=== PATIENT | female | born 1980 | race Caucasian/White ===

== ENCOUNTER 2023-10-04 11:45 | Inpatient (IN) | payer OTHER ==
[~2023-10-04] VITALS: Ht 167.6 cm; Wt 97.7 kg
[2023-10-04 12:39] LABS: HEMATOCRIT 46.2 % (36.0-47.0); HEMOGLOBIN 15.7 g/dl (12.0-15.5); MEAN CORPUSCULAR HEMOGLOBIN 30.5 pg (27.0-33.0); MEAN CORPUSCULAR VOLUME 89.7 fl (80.0-96.0); PLATELET COUNT, AUTOMATED 364 10^3/uL (150-450); RED BLOOD COUNT 5.15 10^6/uL (4.00-5.40); WHITE BLOOD COUNT 8.8 10^3/uL (4.0-10.0)
[2023-10-04] MEDS ORDERED: VITMTA PO (12:47)
[2023-10-04] MEDS ORDERED: BUPR300T92 PO (12:47)
[2023-10-04] MEDS ORDERED: SUMA50TA2 PO ×2 (12:47→17:24)
[2023-10-04] MEDS ORDERED: BUPR150T12 PO (12:47)
[2023-10-04] MEDS ORDERED: TOPI-21 PO ×2 (12:47→17:23)
[2023-10-04] MEDS ORDERED: B-12100020 PO (12:47)
[2023-10-04] MEDS ORDERED: OMEP10CASR PO (12:47)
[2023-10-04 13:04] LABS: ETHYL ALCOHOL (ETHANOL) 0.005 % (0.000-0.010)
[2023-10-04 13:05] LABS: SALICYLATE LEVEL 5.9 MG/DL (<30)
[2023-10-04 13:06] LABS: ALBUMIN 4.1 G/DL (3.2-5.2); ALKALINE PHOSPHATASE 64 U/L (46-116); ALT/SGPT 21 U/L (7.0-40); AST/SGOT 10 U/L (<34); BILIRUBIN,DIRECT 0.1 MG/DL (<0.4); BILIRUBIN,TOTAL 0.4 MG/DL (0.3-1.2); BLOOD UREA NITROGEN 15 MG/DL (9-23); CALCIUM LEVEL 9.2 MG/DL (8.5-10.1); CARBON DIOXIDE LEVEL 24 MMOL/L (20-31); CHLORIDE LEVEL 108 MMOL/L (98-107); CREATININE FOR GFR 0.95 MG/DL (0.55-1.30); GLOMERULAR FILTRATION RATE > 60.0 (>58); GLUCOSE, FASTING 91 MG/DL (60-100); POTASSIUM SERUM 4.1 MMOL/L (3.5-5.1); SODIUM LEVEL 138 MMOL/L (136-145); TOTAL PROTEIN 7.3 G/DL (5.7-8.2)
[2023-10-04 13:10] LABS: HCG, SERUM QUALITATIVE NEGATIVE (NEGATIVE)
[2023-10-04 13:39] LABS: AMPHETAMINES LEVEL URINE NEGATIVE (NEGATIVE); BARBITURATES URINE NEGATIVE (NEGATIVE); BENZODIAZEPINES URINE NEGATIVE (NEGATIVE)
[2023-10-04 13:40] LABS: CANNABINOIDS URINE NEGATIVE (NEGATIVE); COCAINE METABOLITE URINE NEGATIVE (NEGATIVE); METHADONE URINE NEGATIVE (NEGATIVE); OPIATES URINE NEGATIVE (NEGATIVE); PHENCYCLIDINE URINE NEGATIVE (NEGATIVE)
[2023-10-04] MEDS ORDERED: EXCEDRIN MIGRAINE TABLET PO ONE (14:15)
[2023-10-04] MEDS ORDERED: ACETAMINOPHEN TAB 650MG DOSE (2X325MG) PO PRN (15:00)
[2023-10-04] MEDS ORDERED: MAALOX 30 ML SUSP *UDC PO PRN (15:00)
[2023-10-04] MEDS ORDERED: MOM 30ML SUSPENSION UDC PO PRN (15:00)
[2023-10-04] MEDS ORDERED: diphenhydrAMINE 25MG CAP PO PRN (15:00)
[2023-10-04] MEDS ORDERED: IBUPROFEN 400MG TAB PO PRN (15:00)
[2023-10-04] MEDS ORDERED: MED REC IN PROGRESS XX SCH (17:20)
[2023-10-04] MEDS ORDERED: VITA100093 PO (17:44)
[2023-10-04] MEDS ORDERED: HOME MED LIST COMPLETE! XX SCH (17:50)
[2023-10-04 22:10] VITALS: TEMP 98.2; O2SAT 99
[2023-10-05 06:42] VITALS: BP 123/55; TEMP 97.7; O2SAT 98
[2023-10-05] MEDS ORDERED: INFLUENZA QUADRIVALENT PF VACCINE 0.5ML SYRINGE IM.IMMUN ONE (09:00)
[2023-10-05] MEDS ORDERED: SUMAtriptan SUCCINATE 25 MG TAB PO PRN ×2 (10:05→12:10)
[2023-10-05] MEDS: TOPIRAMATE (TopAMAX) 25 MG TAB PO SCH ×2 (10:27→21:30)
[2023-10-05] MEDS: MULTIVITAMINS/MINERALS THERAP 1 TAB PO SCH (10:27)
[2023-10-05] MEDS: VITAMIN D 1,000 INTERNATIONAL UNITS TABLET PO SCH (10:27)
[2023-10-05] MEDS ORDERED: hydrOXYzine 50 MG TAB PO PRN (11:10)
[2023-10-05] MEDS ORDERED: SUMAtriptan SUCCINATE 25 MG TAB PO ONE (12:05)
[2023-10-05] MEDS: ARIPiprazole 2 MG TAB PO SCH (21:30)
[2023-10-06 06:35] VITALS: BP 119/77; TEMP 99.5; O2SAT 97
[2023-10-06] MEDS: OMEPRAZOLE 20MG CAP PO PRN (07:36)
[2023-10-06] MEDS: TOPIRAMATE (TopAMAX) 25 MG TAB PO SCH ×2 (08:26→21:01)
[2023-10-06] MEDS: VITAMIN D 1,000 INTERNATIONAL UNITS TABLET PO SCH (08:26)
[2023-10-06] MEDS: MULTIVITAMINS/MINERALS THERAP 1 TAB PO SCH (08:26)
[2023-10-06] MEDS: buPROPion **XL** TABLET 150MG (WELLBUTRIN XL) PO SCH (08:29)
[2023-10-06] MEDS ORDERED: buPROPion **XL** TABLET 150MG (WELLBUTRIN XL) PO SCH (09:00)
[2023-10-06 16:29] VITALS: BP 131/86; TEMP 98.1; O2SAT 16
[2023-10-06] MEDS: ARIPiprazole 2 MG TAB PO SCH (21:01)
[2023-10-06] MEDS: traZODone 50 MG TAB PO PRN (21:01)
[2023-10-07 06:03] VITALS: BP 121/58; TEMP 98.7; O2SAT 96
[2023-10-07] MEDS: OMEPRAZOLE 20MG CAP PO PRN (07:32)
[2023-10-07] MEDS: VITAMIN D 1,000 INTERNATIONAL UNITS TABLET PO SCH (08:27)
[2023-10-07] MEDS: TOPIRAMATE (TopAMAX) 25 MG TAB PO SCH ×2 (08:27→21:09)
[2023-10-07] MEDS: MULTIVITAMINS/MINERALS THERAP 1 TAB PO SCH (08:27)
[2023-10-07] MEDS: buPROPion **XL** TABLET 150MG (WELLBUTRIN XL) PO SCH (08:28)
[2023-10-07 11:08] LABS: CHOLESTEROL RISK RATIO 3.63 (<5); LDL CHOLESTEROL 79.4 MG/DL (<100)
[2023-10-07 18:26] VITALS: BP 141/83; TEMP 98.4
[2023-10-07] MEDS: ARIPiprazole 2 MG TAB PO SCH (21:09)
[2023-10-07] MEDS: traZODone 50 MG TAB PO PRN (22:11)
[2023-10-08 06:24] VITALS: BP 111/59; TEMP 98.4; O2SAT 97
[2023-10-08] MEDS: OMEPRAZOLE 20MG CAP PO SCH (06:29)
[2023-10-08] MEDS: TOPIRAMATE (TopAMAX) 25 MG TAB PO SCH ×2 (08:06→20:32)
[2023-10-08] MEDS: buPROPion **XL** TABLET 150MG (WELLBUTRIN XL) PO SCH (08:06)
[2023-10-08] MEDS: MULTIVITAMINS/MINERALS THERAP 1 TAB PO SCH (08:06)
[2023-10-08] MEDS: VITAMIN D 1,000 INTERNATIONAL UNITS TABLET PO SCH (08:06)
[2023-10-08 18:52] VITALS: BP 138/86; TEMP 97.2
[2023-10-08] MEDS: ARIPiprazole 2 MG TAB PO SCH (20:32)
[2023-10-09] MEDS: OMEPRAZOLE 20MG CAP PO SCH (06:01)
[2023-10-09 06:22] VITALS: BP 114/54; TEMP 99.1; O2SAT 99
[2023-10-09] MEDS: buPROPion **XL** TABLET 150MG (WELLBUTRIN XL) PO SCH (08:14)
[2023-10-09] MEDS: MULTIVITAMINS/MINERALS THERAP 1 TAB PO SCH (08:14)
[2023-10-09] MEDS: TOPIRAMATE (TopAMAX) 25 MG TAB PO SCH ×2 (08:14→20:12)
[2023-10-09] MEDS: VITAMIN D 1,000 INTERNATIONAL UNITS TABLET PO SCH (08:14)
[2023-10-09] MEDS ORDERED: BUPR300T92 PO (16:13)
[2023-10-09] MEDS ORDERED: BUPR150T12 PO (16:13)
[2023-10-09] MEDS ORDERED: ABIL1TAB13 PO (16:13)
[2023-10-09 17:59] VITALS: BP 123/77; TEMP 97.7; O2SAT 96
[2023-10-09] MEDS: ARIPiprazole 2 MG TAB PO SCH (20:12)
[2023-10-10] MEDS: OMEPRAZOLE 20MG CAP PO SCH (06:09)
[2023-10-10 06:34] VITALS: BP 113/63; TEMP 97.6; O2SAT 100
[2023-10-10] MEDS: buPROPion **XL** TABLET 150MG (WELLBUTRIN XL) PO SCH (08:26)
[2023-10-10] MEDS: MULTIVITAMINS/MINERALS THERAP 1 TAB PO SCH (08:26)
[2023-10-10] MEDS: TOPIRAMATE (TopAMAX) 25 MG TAB PO SCH (08:26)
[2023-10-10] MEDS: VITAMIN D 1,000 INTERNATIONAL UNITS TABLET PO SCH (08:26)
== END 2023-10-10 11:19 | disposition home or self-care (01) | DRG 885 ==
LOC: EDBD 11:45 → M ED 11:45 → M ED INP 15:00 → M PSY 22:10
PROVIDERS: ADMIT Student in an Organized Health Care Education/Training Program; ATTEND Student in an Organized Health Care Education/Training Program
DX: F33.1 Major depressive disorder, recurrent, moderate (principal); R45.851 Suicidal ideations; G43.909 Migraine, unspecified, not intractable, without status migrainosus; K21.9 Gastro-esophageal reflux disease without esophagitis; Z81.1 Family history of alcohol abuse and dependence; E66.9 Obesity, unspecified; Z88.0 Allergy status to penicillin; Z68.34 Body mass index [BMI] 34.0-34.9, adult; Z91.51 Personal history of suicidal behavior; Z79.899 Other long term (current) drug therapy; Z88.8 Allergy status to other drugs, medicaments and biological substances